=== PATIENT | female | born 1975 | race Caucasian/White ===

== ENCOUNTER → 2021-01-03 10:57 | Outpatient (BNVA) | payer OTHER, SELFPAY | PROVIDERS: PCP Nurse Practitioner Family; Referring Provider Nurse Practitioner Family; Visit Provider Internal Medicine Rheumatology | DX: L94.0 Localized scleroderma [morphea] (principal); M15.9 Polyosteoarthritis, unspecified; Z79.899 Other long term (current) drug therapy | CPT/HCPCS: 99204 ==